=== PATIENT | male | born 2000 | race African-American/Black ===

== ENCOUNTER 2024-04-08 15:56 | Emergency (ER) | payer SELFPAY ==
[2024-04-08 15:58] VITALS: BP 157/92
--- NOTE | 2024-04-08 16:41 | ED.GENMED ---
History of Present Illness
General
Chief Complaint: Abdominal Pain
Source: patient
Exam Limitations: none
Time Seen by Provider: 04/08/24 16:31
Nursing documentation reviewed up to this point in time: agreed with
History of Present Illness
History of Present Illness:
Patient to ED with complaint of diffuse abdominal pain x 3 weeks. Pain is worse after eating. Denies fever/chlls, recent illness. +nausea, no vomiting. Had diarrhea yesterday AM, nothing sined. Brought self to ED for eval.
Past History
Past History
ED Past Medical History: HTN and Other (Recurring abscesses)
ED Past Surgical History: None
Review of Systems
Review of Systems
Allergies reviewed?: Yes
All Other Systems: ROS reviewed and negative except as documented in HPI and ROS
Constitutional: Reports no symptoms
EENT: Reports no symptoms
Respiratory: Reports no symptoms
Cardiac: Reports no symptoms
ABD/GI: Reports abdominal pain (diffuse)
: Reports no symptoms
Musculoskeletal: Reports no symptoms
Skin: Reports no symptoms
Neurological: Reports no symptoms
Psychiatric: Reports no symptoms
Phy Exam
General Physical Exam
General Presentation: well appearing and no apparent distress
General age: appears stated age
General Skin: warm and dry
General Habitus: normal
General Mental: alert
Gastrointestinal Exam
Gastrointestinal Exam: normal bowel sounds, soft, no organomegaly, no pulsatile mass, non distended and no cva tenderness
Palpation: generalized: Mild tenderness
Musculoskeletal Exam
Musculoskeletal Exam: full ROM and neuro vasc intact
Skin Exam
Skin Exam: normal color, warm/dry and no rash
Psychiatric Exam
Psychiatric Exam: normal mood/affect
Course
Orders/Labs/Results
Orders:
Orders
04/08/24 16:55
US Abdomen Complete/Upper Urgent
Comment:
Reason For Exam: upper abdominal pain
04/08/24 17:05
Basic Metabolic Panel Urgent
Complete Blood Count/With Diff Urgent
Lipase Urgent
Urinalysis Reflex To Culture Urgent
Date Specimen was Collected: 04/08/24
Time Specimen was Collected: 16:42
Urine Microscopic Reflex Cult Urgent
Abnormal Lab Results
04/08/24
17:05
Hct 38.7 L %
(39.0-52.0)
RDW 14.9 H %
(11.5-14.5)
Ur Occult Blood Reflex Trace A
(Negative)
Urine Urobilinogen 2+ A
(Neg - 1+)
Urine Bacteria (Reflex) Few A
(Negative)
04/08/24 17:05
04/08/24 18:58
Vital Signs
Initial and Last Documented VS:
Initial Vital Signs
Temp Pulse Resp BP Pulse Ox
98.8 F 100 18 157/92 99
04/08/24 15:58 04/08/24 15:58 04/08/24 15:58 04/08/24 15:58 04/08/24 15:58
Last Documented Vital Signs
Temp Pulse Resp BP Pulse Ox
98.8 F 100 18 157/92 99
04/08/24 15:58 04/08/24 15:58 04/08/24 18:00 04/08/24 15:58 04/08/24 15:58
*Radiology
Radiology exam reviewed: radiology read reviewed
*Pulse Oximetry
Patient hypoxic: no
*Critical Care Note
Total Time (30-74mins, 75-104mins- exclusive of procedures): Not Applicable
Update Note
Update Note:
Patient to ED with complaint of upper abd. pain x 3 weeks. Pain worse after eating. No associated n/v. Had 1 episode of diarrhea yesterday. Labs unremarkable. US without findings to explain his symptoms. Discussed xray and imaging results with
him. WIll discharge home. Given number for GI follow up. Will try short course PPI. GIven instructions on s/s to return to ED and he is agreeeable to plan.
ED Attending Note
-
Portions of this chart may have been created with voice recognition software.� Occasional wrong word or��sound alike� substitutions may have occurred due to the inherent limitations of voice recognition software.
Discharge Plan
Departure
Patient Disposition: Home (Routine Discharge)
Date of Disposition: 04/08/24
Time of Disposition: 19:05
Patient with high blood pressure during this ER visit?: No
Condition: Good
Covid-19: Not Applicable
Discharge Problem:
Abdominal pain
Instructions: Abdominal Pain
Prescriptions:
New
omeprazole 40 mg capsule,delayed release(DR/EC)
40 mg PO DAILY Qty: 30 0RF
No Action
lisinopril
1 tab PO DAILY
Rx Instructions:
Patient unsure of dose
clindamycin HCl 150 mg capsule
450 mg PO TID 10 Days Qty: 90 0RF
Referrals:
Dagoberto Sanchez MD [Active] - Next open appointment
Activity Restrictions/Additional Instructions:
Return to the emergency department immediately for any changes in /worsening of your symptoms.
Interventions
Interventions:
*Risk Screen - Suicide Last Done: 04/08/24 16:00
*General Assessment Last Done: 04/08/24 16:00
*Neglect/Abuse Screening Last Done: 04/08/24 16:33
ED- Fall Risk Assessment Last Done: 04/08/24 17:13
*ED COVID-19 Vaccine History Last Done: 04/08/24 16:00
TV-Zwdglv-Gakaqwchnr Assessment Last Done: 04/08/24 17:13
Discharge Date and Time
Print Language: [place]
[2024-04-08 17:14] LABS: Urine Albumin Negative (Neg - Trace); Urine Bilirubin Negative (Negative); Urine Character Clear (Clear); Urine Color Yellow; Urine Glucose Negative (Negative); Urine Ketone Negative (Negative); Urine Leukocyte Negative (Negative); Urine Nitrite Negative (Negative); Urine Occult Blood Trace (Negative); Urine Specific Gravity 1.015 (<1.030); Urine Urobilinogen 2+ (Neg - 1+); Urine pH 6.5 (5.0-9.0)
[2024-04-08 17:21] LABS: Urine Bacteria Few (Negative); Urine Red Blood Cell 0-2 /HPF (0-2); Urine White Cell 0-2 /HPF (0-5)
[2024-04-08 18:21] LABS: % Basophils 0.9 % (0-2); % Eosinophils 1.9 % (0-6); % Immature Granulocytes 0.1 % (0-0.5); % Lymphocytes 43.1 % (20.5-51.1); % Monocytes 8.8 % (1.7-9.3); % Neutrophils 45.2 % (42.2-75.2); Absolute Basophils 0.1 10^3/uL (0-0.2); Absolute Eosinophils 0.1 10^3/uL (0-0.7); Absolute Monocytes 0.6 10^3/uL (0.1-0.6); Absolute Neutrophils 3.2 10^3/uL (1.4-6.5); Hematocrit 38.7 % (39.0-52.0); Mean Corp Hgb Conc. 33.6 g/dL (33.0-37.0); Mean Corpuscular Hgb 27.3 pg (27.0-31.0); Mean Corpuscular Volume 81.3 fL (80.0-94.0); Mean Platelet Volume 9.4 fL (7.4-10.4); Nucleated Red Blood Cells % 0 % (-); Platelet Count 354 10^3/uL (130-400); Red Blood Cell Count 4.76 10^6/uL (4.70-6.10); Red Cell Dist. Width 14.9 % (11.5-14.5)
[2024-04-08 18:59] LABS: Blood Urea Nitrogen 10 mg/dl (9-20); Calcium 9.8 mg/dl (8.4-10.2); Carbon Dioxide 25 mmol/L (22-30); Chloride 101 mmol/L (98-107); Glucose 73 mg/dl (70-99); Lipase 151 U/L (23-300); Sodium 140 mmol/L (135-145); eGFR > 60.00
[2024-04-08 19:17] VITALS: BP 143/79
== END 2024-04-08 19:19 | disposition home or self-care (01) ==
LOC: EMR 15:56
PROVIDERS: Nurse Practitioner; EMERGENCY PHYSICIAN Student in an Organized Health Care Education/Training Program
DX: R10.10 Upper abdominal pain, unspecified (principal); R19.7 Diarrhea, unspecified; R11.0 Nausea; I10 Essential (primary) hypertension; E78.5 Hyperlipidemia, unspecified
CPT/HCPCS: 99284; 76700; 80048; 81003; 81015; 83690; 85025

== ENCOUNTER 2024-07-28 06:39 | Day surgery (SDC) | payer OTHER, SELFPAY | END 2024-07-28 13:31 | disposition home or self-care (01) | LOC: GI 06:39 | PROVIDERS: ATTENDING PHYSICIAN Internal Medicine Gastroenterology | DX: R10.13 Epigastric pain (principal); R19.7 Diarrhea, unspecified; K44.9 Diaphragmatic hernia without obstruction or gangrene; R11.2 Nausea with vomiting, unspecified | CPT/HCPCS: 43239; 88305; 88342 ==